=== PATIENT | female | born 1955 | race Caucasian/White ===

== ENCOUNTER 2017-10-14 12:37 | Emergency (ER) | payer MEDICAID ==
[~2017-10-14] VITALS: Ht 157.5 cm; Wt 98.0 kg
[~2017-10-14 12:37] MED LIST: ALBU8.5H8 INH; AMLO10TA4 PO; ASPI-611 PO; CLOT15CR73 TP; LEVO100T PO; LOSA50TA3 PO
[2017-10-14 13:08] VITALS: BP 142/87
[2017-10-14] MEDS ORDERED: LEVO500T89 PO (13:16)
== END 2017-10-14 13:46 | disposition home or self-care (01) ==
LOC: ER 12:37
DX: L03.113 Cellulitis of right upper limb (principal); J44.9 Chronic obstructive pulmonary disease, unspecified; I10 Essential (primary) hypertension; E11.9 Type 2 diabetes mellitus without complications; Z86.19 Personal history of other infectious and parasitic diseases; Z98.890 Other specified postprocedural states; Z79.82 Long term (current) use of aspirin; Z79.899 Other long term (current) drug therapy
CPT/HCPCS: 99283

== ENCOUNTER 2018-08-07 13:22 | Emergency (ER) | payer MEDICAID ==
[~2018-08-07] VITALS: Ht 157.5 cm; Wt 102.0 kg
[2018-08-07 13:28] VITALS: BP 139/65
[2018-08-07] MEDS ORDERED: ipratropium/albuterol 3ml nebule NEB ONE (15:20)
[2018-08-07] MEDS ORDERED: benzonatate 100mg capsule PO ONE (15:20)
[2018-08-07] MEDS ORDERED: ALBU18HF2 IH (15:26)
[2018-08-07] MEDS ORDERED: BENZ-16 PO (15:26)
--- NOTE | 2018-08-07 15:47 | NUR ---
rt at bedside giving breathing tx.
== END 2018-08-07 15:51 | disposition home or self-care (01) ==
LOC: ER 13:24
DX: J06.9 Acute upper respiratory infection, unspecified (principal); J98.01 Acute bronchospasm; J44.9 Chronic obstructive pulmonary disease, unspecified; I10 Essential (primary) hypertension; E11.9 Type 2 diabetes mellitus without complications; F17.200 Nicotine dependence, unspecified, uncomplicated; Z98.890 Other specified postprocedural states; Z79.82 Long term (current) use of aspirin; Z79.899 Other long term (current) drug therapy
CPT/HCPCS: 93005; 94640; 94760; 99283

== ENCOUNTER 2018-08-11 16:07 | Inpatient (IN) | payer MEDICAID | END 2018-08-14 17:10 | disposition home or self-care (01) | LOC: MED 3N 08-12 00:07 → ER 16:07 → PCU 3S 08-12 11:34 → ED HOLD 22:36 ==

== ENCOUNTER 2018-10-20 20:39 | Inpatient (IN) | payer MEDICAID | END 2018-10-27 17:25 | disposition home or self-care (01) | LOC: ED HOLD 23:12 → ER 20:39 → PCU 3S 10-21 07:30 ==